=== PATIENT | female | born 1965 | race Native Hawaiian/Other Pacific Islander ===

== ENCOUNTER 2016-10-29 13:51 | Outpatient (CLI) | payer MEDICAID | END 2016-10-29 13:52 | disposition home or self-care (01) | DX: E78.5 Hyperlipidemia, unspecified (principal); I10 Essential (primary) hypertension; M25.50 Pain in unspecified joint ==

== ENCOUNTER 2016-11-20 13:12 | Outpatient (CLI) | payer MEDICAID | END 2016-11-20 13:13 | disposition home or self-care (01) | DX: Z12.31 Encounter for screening mammogram for malignant neoplasm of breast (principal) ==

== ENCOUNTER 2017-06-04 10:37 | Outpatient (CLI) | payer MEDICAID ==
[2017-06-04 11:30] LABS: ALBUMIN/GLOBULIN RATIO 1.2 (1.0-2.2); BILIRUBIN,TOTAL 0.5 mg/dL (0.2-1.0); BUN - BLOOD UREA NITROGEN 9 mg/dL (6-20); CALCIUM 9.2 mg/dL (8.5-10.3); CARBON DIOXIDE - CO2 24 mmol/L (21-32); CHLORIDE 103 mmol/L (101-111); CHOL/HDL RATIO 3.3 (<4.4); CHOLESTEROL 170 mg/dL; CREATININE 0.6 mg/dL (0.4-1.0); GFR - MDRD 105 (>89); GLUCOSE 95 mg/dL (70-100); HDL CHOLESTEROL 51 mg/dL; LDL/HDL RATIO 1.8 (<4.4); SODIUM 138 mmol/L (135-145); TRIGLYCERIDES 131 mg/dL; VLDL CHOLESTEROL 26 mg/dL
== END 2017-06-04 10:38 | disposition home or self-care (01) ==
LOC: LAB 10:37
PROVIDERS: ATTEND Family Medicine
DX: R73.9 Hyperglycemia, unspecified (principal); E78.5 Hyperlipidemia, unspecified; I10 Essential (primary) hypertension
CPT/HCPCS: 36415; 80053; 80061

== ENCOUNTER 2017-06-24 09:09 | Outpatient (CLI) | payer MEDICAID ==
--- NOTE | 2017-06-25 16:11 | CT Report ---
CT SCAN ABDOMEN AND PELVIS: 06/24/2017 HISTORY: Change in bowel habits, abdominal pain. COMPARISON: None. TECHNIQUE: Axial noncontrast images of the abdomen and pelvis with multiplanar reconstructions. In accordance with CT protocol optimization, one or more of the following dose reduction techniques were utilized for this exam: automated exposure control, adjustment of mA and/or KV based on patient size, or use of iterative reconstructive technique. FINDINGS LUNG BASES: Clear. LIVER, SPLEEN, ADRENAL GLANDS, AND PANCREAS: Unremarkable. Faint medullary calcifications are seen in both kidneys without evidence of hydronephrosis or cystic or solid mass. The gallbladder is distended with sludge. There is a 1.5 cm peripherally calcified lesion in the gallbladder neck/cystic duct region, worrisome for an obstructing stone. Suggest further evaluation by ultrasound. There is no free fluid, mass, abnormal collections, or pathologic upper abdominal adenopathy. No significant diverticulosis or diverticulitis. The bladder is unremarkable. Uterus and ovaries show no obvious pathology by CT. Again, no free fluid, adenopathy or abnormal collections. The appendix is not definitely seen. There is degenerative change in the spine most marked L3-4 and L4-5. IMPRESSION: ABNORMAL GALLBLADDER WITH DISTENTION, SLUDGE VERSUS SMALL STONES, AND 1.5 CM RIM-CALCIFIED LESION IN THE GALLBLADDER NECK/CYSTIC DUCT. SUGGEST FURTHER EVALUATION BY ABDOMEN ULTRASOUND. OTHER INCIDENTAL FINDINGS ABOVE. JOB #: [id number] EXT JOB #: [id number] MTDD
== END 2017-06-24 09:10 | disposition home or self-care (01) ==
LOC: DI 09:09
PROVIDERS: ATTEND Family Medicine
DX: K82.8 Other specified diseases of gallbladder (principal)
CPT/HCPCS: 74176

== ENCOUNTER 2017-07-12 08:31 | Outpatient (CLI) | payer MEDICAID ==
--- NOTE | 2017-07-12 23:44 | Ultrasound Report ---
EXAM: ABDOMEN ULTRASOUND LIMITED, RUQ EXAM DATE: 07/12/2017 09:46 AM. CLINICAL HISTORY: CHOLELITHIASIS. COMPARISON: 06/24/2017 CT. TECHNIQUE: Real-time scanning was performed with static images obtained. FINDINGS: Liver: Hyperechoic echotexture. No focal liver lesions. 14.3 cm. Main portal vein flow: Hepatopetal. Gallbladder: Mildly distended gallbladder containing several shadowing stones. There is a non-mobile 1 cm stone within the neck of the gallbladder. No gallbladder wall thickening or pericholecystic flui d collections. Biliary System: CBD measures 4 mm. No intrahepatic or extrahepatic ductal dilatation. Other: No right hydronephrosis. The patient's pancreas is unremarkable. IMPRESSION: 1. Cholelithiasis including a non-mobile 1 cm stone within the neck of the gallbladder. No evidence o f acute cholecystitis or bile duct obstruction. 2. Fatty liver. [facility] Referring Provider Line: [phone] SITE ID: [id number]
== END 2017-07-12 08:32 | disposition home or self-care (01) ==
LOC: DI 08:31
PROVIDERS: ATTEND Family Medicine
DX: K80.20 Calculus of gallbladder without cholecystitis without obstruction (principal); K76.0 Fatty (change of) liver, not elsewhere classified
CPT/HCPCS: 76705

== ENCOUNTER 2018-06-22 08:00 | Outpatient (CLI) | payer MEDICAID | END 2018-06-22 08:01 | disposition home or self-care (01) | LOC: LAB.R 08:00 | PROVIDERS: ATTEND Nurse Practitioner | DX: R10.9 Unspecified abdominal pain (principal) | CPT/HCPCS: 87086 ==

== ENCOUNTER 2018-06-22 11:55 | Outpatient (CLI) | payer MEDICAID ==
[2018-06-22 19:28] LABS: BASOPHILS % (AUTO) 0.5 %; EOSINOPHILS # (AUTO) 0.1 10^3/uL (0.0-0.7); EOSINOPHILS % (AUTO) 1.9 %; HGB - HEMOGLOBIN 14.5 g/dL (12.0-16.0); LYMPHOCYTES # (AUTO) 1.2 10^3/uL (1.5-3.5); LYMPHOCYTES % (AUTO) 23.3 %; MEAN CORPUSCULAR HEMOGLOBIN 28.4 pg (27.0-31.0); MEAN CORPUSCULAR HGB CONC 33.1 g/dL (32.0-36.0); MEAN CORPUSCULAR VOLUME 85.8 fL (81.0-99.0); MEAN PLATELET VOLUME 7.8 fL (7.9-10.8); MONOCYTES # (AUTO) 0.6 10^3/uL (0.0-1.0); MONOCYTES % (AUTO) 11.6 %; NEUTROPHILS # (AUTO) 3.3 10^3/uL (1.5-6.6); NEUTROPHILS % (AUTO) 62.7 %; PLT - PLATELET COUNT 275 10^3/uL (130-450); RED BLOOD COUNT 5.11 10^6/uL (4.20-5.40); RED CELL DISTRIBUTION WIDTH 13.3 % (12.0-15.0); WHITE BLOOD COUNT 5.3 x10^3/uL (4.8-10.8)
[2018-06-22 19:54] LABS: ALBUMIN/GLOBULIN RATIO 1.1 (1.0-2.2); ALKALINE PHOSPHATASE 70 IU/L (42-121); ALT ALANINE AMINOTRANSFERASE 22 IU/L (10-60); AST ASPARTATE AMINOTRANSFERASE 20 IU/L (10-42); BILIRUBIN,TOTAL 0.5 mg/dL (0.2-1.0); BUN - BLOOD UREA NITROGEN 15 mg/dL (6-20); CALCIUM 9.2 mg/dL (8.5-10.3); CARBON DIOXIDE - CO2 24 mmol/L (21-32); CHLORIDE 104 mmol/L (101-111); CHOL/HDL RATIO 4.1 (<4.4); CHOLESTEROL 246 mg/dL; CREATININE 0.6 mg/dL (0.4-1.0); GFR - MDRD 104 (>89); GLUCOSE 95 mg/dL (70-100); HDL CHOLESTEROL 60 mg/dL; LDL CHOLESTEROL,CALCULATED 159 mg/dL; LDL/HDL RATIO 2.7 (<4.4); SODIUM 140 mmol/L (135-145); TOTAL PROTEIN 7.8 g/dL (6.7-8.2); VLDL CHOLESTEROL 27 mg/dL
== END 2018-06-22 11:56 | disposition home or self-care (01) ==
LOC: LAB.N 11:55
PROVIDERS: ATTEND Nurse Practitioner
DX: I10 Essential (primary) hypertension (principal); E78.5 Hyperlipidemia, unspecified; R10.9 Unspecified abdominal pain
CPT/HCPCS: 36415; 80053; 80061; 83721; 85025; 87086

== ENCOUNTER 2018-07-03 14:22 | Outpatient (CLI) | payer MEDICAID ==
--- NOTE | 2018-07-03 16:24 | XRAY Report ---
Reason: ABDOMEN PAIN Procedure Date: 07/03/2018 Accession Number: [id number] / [id number] Procedure: XRN - Abdomen 2 View X-Ray CPT Code: 95188 FULL RESULT: EXAM: ABDOMEN RADIOGRAPHY EXAM DATE: 07/03/2018 02:36 PM. CLINICAL HISTORY: Abdomen pain. COMPARISON: None. TECHNIQUE: 2 views. FINDINGS: Lung Bases: Unremarkable. Bowel Gas Pattern: Within normal limits. No dilated loops or abnormal fluid levels. Free Air: None. Other: None. IMPRESSION: Nonobstructive bowel gas pattern. [facility]
== END 2018-07-03 14:23 | disposition home or self-care (01) ==
LOC: DI.N 14:22
PROVIDERS: ATTEND Nurse Practitioner
DX: R10.9 Unspecified abdominal pain (principal)
CPT/HCPCS: 74019

== ENCOUNTER 2018-07-07 14:36 | Outpatient (CLI) | payer MEDICAID ==
--- NOTE | 2018-07-08 11:04 | XRAY Report ---
Reason: WRIST JOINT PAIN/HAND JOINT PAIN,RIGHT Procedure Date: 07/07/2018 Accession Number: [id number] / [id number] Procedure: XRN - Hand 2 View RT CPT Code: FULL RESULT: EXAM: RIGHT HAND RADIOGRAPHY EXAM DATE: 07/07/2018 02:54 PM. CLINICAL HISTORY: Wrist joint pain/hand joint pain, right. COMPARISON: None. TECHNIQUE: 2 views. FINDINGS: Bones: Normal. No fractures or bone lesions. Joints: Normal. No subluxations. Soft Tissues: Normal. No soft tissue swelling. IMPRESSION: Normal hand radiography. [facility]
--- NOTE | 2018-07-08 11:06 | XRAY Report ---
Reason: wrist joint pain Procedure Date: 07/07/2018 Accession Number: [id number] / [id number] Procedure: XRN - Wrist 3 View RT CPT Code: FULL RESULT: EXAM: RIGHT WRIST RADIOGRAPHY EXAM DATE: 07/07/2018 02:54 PM. CLINICAL HISTORY: Wrist joint pain. COMPARISON: HAND 2 VIEW RT 07/07/2018 2:53 PM. TECHNIQUE: 3 views. FINDINGS: Bones: Normal. No fractures or bone lesions. Joints: Normal. No subluxations. Soft Tissues: Normal. No soft tissue swelling. IMPRESSION: Normal wrist radiography. [facility]
== END 2018-07-07 14:37 | disposition home or self-care (01) ==
LOC: DI.N 14:36
PROVIDERS: ATTEND Nurse Practitioner
DX: M25.531 Pain in right wrist (principal); M79.641 Pain in right hand

== ENCOUNTER 2018-10-13 15:54 | Outpatient (CLI) | payer MEDICAID ==
--- NOTE | 2018-10-13 23:18 | XRAY Report ---
Reason: FOOT JOINT PAIN,RIGHT Procedure Date: 10/13/2018 Accession Number: [id number] / [id number] Procedure: XRN - Foot 3 View RT CPT Code: FULL RESULT: EXAM: RIGHT FOOT RADIOGRAPHY EXAM DATE: 10/13/2018 04:06 PM. CLINICAL HISTORY: FOOT JOINT Pain, right. COMPARISON: 06/08/2015 12:09 PM. TECHNIQUE: 3 views. FINDINGS: Bones: Normal. No fractures or bone lesions. Joints: Normal. No subluxations. Soft Tissues: Normal. No soft tissue swelling. IMPRESSION: Negative foot radiography. [facility]
== END 2018-10-13 15:55 | disposition home or self-care (01) ==
LOC: DI.N 15:54
PROVIDERS: ATTEND Nurse Practitioner
DX: M79.671 Pain in right foot (principal)

== ENCOUNTER 2019-07-19 09:00 | Outpatient (CLI) | payer MEDICAID ==
[2019-07-19 13:08] LABS: BASOPHILS % (AUTO) 0.4 %; EOSINOPHILS # (AUTO) 0.1 10^3/uL (0.0-0.7); HGB - HEMOGLOBIN 14.4 g/dL (12.0-16.0); LYMPHOCYTES # (AUTO) 1.6 10^3/uL (1.5-3.5); MEAN CORPUSCULAR HEMOGLOBIN 27.7 pg (27.0-31.0); MEAN CORPUSCULAR HGB CONC 32.4 g/dL (32.0-36.0); MEAN CORPUSCULAR VOLUME 85.6 fL (81.0-99.0); MEAN PLATELET VOLUME 9.9 fL (7.9-10.8); MONOCYTES # (AUTO) 0.4 10^3/uL (0.0-1.0); MONOCYTES % (AUTO) 7.4 %; NEUTROPHILS # (AUTO) 2.8 10^3/uL (1.5-6.6); PLT - PLATELET COUNT 280 10^3/uL (130-450); RED CELL DISTRIBUTION WIDTH 13.4 % (12.0-15.0); WHITE BLOOD COUNT 4.9 x10^3/uL (4.8-10.8)
[2019-07-19 13:31] LABS: ALBUMIN 4.2 g/dL (3.2-5.5); ALBUMIN/GLOBULIN RATIO 1.2 (1.0-2.2); ALKALINE PHOSPHATASE 62 IU/L (42-121); ALT ALANINE AMINOTRANSFERASE 27 IU/L (10-60); AST ASPARTATE AMINOTRANSFERASE 21 IU/L (10-42); BILIRUBIN,TOTAL 0.9 mg/dL (0.2-1.0); BUN - BLOOD UREA NITROGEN 12 mg/dL (6-20); CALCIUM 9.4 mg/dL (8.5-10.3); CARBON DIOXIDE - CO2 27 mmol/L (21-32); CHLORIDE 106 mmol/L (101-111); CHOL/HDL RATIO 4.5 (<4.4); CHOLESTEROL 253 mg/dL; CREATININE 0.7 mg/dL (0.4-1.0); GFR - MDRD 87 (>89); GLUCOSE 108 mg/dL (70-100); HDL CHOLESTEROL 56 mg/dL; LDL CHOLESTEROL,CALCULATED 174 mg/dL; LDL/HDL RATIO 3.1 (<4.4); SODIUM 140 mmol/L (135-145); TOTAL PROTEIN 7.6 g/dL (6.7-8.2); VLDL CHOLESTEROL 23 mg/dL
== END 2019-07-19 23:59 | disposition home or self-care (01) ==
LOC: LAB.N 09:00
PROVIDERS: ATTEND Physician Assistant Medical
DX: E66.9 Obesity, unspecified (principal); R73.9 Hyperglycemia, unspecified; E78.5 Hyperlipidemia, unspecified; I10 Essential (primary) hypertension
CPT/HCPCS: 36415; 80053; 80061; 83721; 84443; 85025

== ENCOUNTER 2019-07-19 09:38 | Outpatient (CLI) | payer MEDICAID ==
--- NOTE | 2019-07-19 11:16 | XRAY Report ---
Reason: LEFT FOOT PAIN Procedure Date: 07/19/2019 Accession Number: [id number] / [id number] Procedure: XRN - Foot 3 View LT CPT Code: Final Report FULL RESULT: EXAM: LEFT FOOT RADIOGRAPHY EXAM DATE: 07/19/2019 09:54 AM. CLINICAL HISTORY: Left foot pain. COMPARISON: None. TECHNIQUE: 3 views. FINDINGS: Bones: There is fragmentation of the sesamoid bones which appears well rounded and corticated, not acute. No fractures or bone lesions. Joints: Normal. No subluxations. Soft Tissues: Normal. No soft tissue swelling. IMPRESSION: Recommend correlation to physical examination for focal tenderness at the ball of the foot. [facility]
== END 2019-07-19 09:39 | disposition home or self-care (01) ==
LOC: DI.N 09:38
PROVIDERS: ATTEND Physician Assistant Medical
DX: M79.672 Pain in left foot (principal); E66.9 Obesity, unspecified; R73.9 Hyperglycemia, unspecified; E78.5 Hyperlipidemia, unspecified; I10 Essential (primary) hypertension
CPT/HCPCS: 36415; 80053; 80061; 83721; 84443; 85025

== ENCOUNTER 2020-10-16 08:00 | Outpatient (CLI) | payer MEDICAID ==
[2020-10-16 18:39] LABS: BASOPHILS % (AUTO) 0.5 %; EOSINOPHILS # (AUTO) 0.1 10^3/uL (0.0-0.7); EOSINOPHILS % (AUTO) 2.2 %; HCT - HEMATOCRIT 46.6 % (37.0-47.0); HGB - HEMOGLOBIN 15.4 g/dL (12.0-16.0); LYMPHOCYTES # (AUTO) 2.1 10^3/uL (1.5-3.5); LYMPHOCYTES % (AUTO) 33.5 %; MEAN CORPUSCULAR HEMOGLOBIN 28.6 pg (27.0-31.0); MEAN CORPUSCULAR VOLUME 86.6 fL (81.0-99.0); MEAN PLATELET VOLUME 10.3 fL (7.9-10.8); MONOCYTES # (AUTO) 0.5 10^3/uL (0.0-1.0); MONOCYTES % (AUTO) 8.1 %; NEUTROPHILS # (AUTO) 3.5 10^3/uL (1.5-6.6); NEUTROPHILS % (AUTO) 55.4 %; PLT - PLATELET COUNT 292 10^3/uL (130-450); RED BLOOD COUNT 5.38 10^6/uL (4.20-5.40); RED CELL DISTRIBUTION WIDTH 12.9 % (12.0-15.0); WHITE BLOOD COUNT 6.3 x10^3/uL (4.8-10.8)
[2020-10-16 19:23] LABS: THYROID STIMULATING HORMONE 1.55 uIU/mL (0.34-5.60)
[2020-10-16 19:31] LABS: ALBUMIN 4.4 g/dL (3.2-5.5); ALBUMIN/GLOBULIN RATIO 1.2 (1.0-2.2); ALKALINE PHOSPHATASE 64 IU/L (42-121); ALT ALANINE AMINOTRANSFERASE 30 IU/L (10-60); AST ASPARTATE AMINOTRANSFERASE 20 IU/L (10-42); BILIRUBIN,TOTAL 1.1 mg/dL (0.2-1.0); BUN - BLOOD UREA NITROGEN 13 mg/dL (6-20); CALCIUM 9.7 mg/dL (8.5-10.3); CARBON DIOXIDE - CO2 25 mmol/L (21-32); CHLORIDE 104 mmol/L (101-111); CHOL/HDL RATIO 4.8 (<4.4); CHOLESTEROL 268 mg/dL; GLUCOSE 99 mg/dL (70-100); HDL CHOLESTEROL 56 mg/dL; LDL CHOLESTEROL,CALCULATED 188 mg/dL; LDL/HDL RATIO 3.4 (<4.4); POTASSIUM 3.8 mmol/L (3.5-5.0); SODIUM 140 mmol/L (135-145); TOTAL PROTEIN 8.2 g/dL (6.7-8.2); TRIGLYCERIDES 119 mg/dL; VLDL CHOLESTEROL 24 mg/dL
[2020-10-16 19:46] LABS: ESTIMATED AVERAGE GLUCOSE 120 mg/dL (70-100); HEMOGLOBIN A1c% 5.8 % (4.27-6.07)
[2020-10-16 19:55] LABS: CREATININE 0.7 mg/dL (0.4-1.0); GFR - MDRD 87 (>89)
== END 2020-10-16 23:59 | disposition home or self-care (01) ==
LOC: LAB.WCP 08:00
PROVIDERS: ATTEND Nurse Practitioner Family
DX: Z00.00 Encounter for general adult medical examination without abnormal findings (principal); I10 Essential (primary) hypertension; E78.5 Hyperlipidemia, unspecified; R73.9 Hyperglycemia, unspecified
CPT/HCPCS: 36415; 80053; 80061; 83036; 83721; 84443; 85025

== ENCOUNTER 2020-12-13 08:15 | Outpatient (CLI) | payer MEDICAID ==
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
[2020-12-13 09:04] VITALS: BP 124/75
== END 2020-12-13 08:16 | disposition home or self-care (01) ==
LOC: SC 08:15
PROVIDERS: ATTEND Nurse Practitioner Family
DX: G47.10 Hypersomnia, unspecified (principal); R06.83 Snoring; G47.8 Other sleep disorders; R51.9 Headache, unspecified; R41.89 Other symptoms and signs involving cognitive functions and awareness; E66.9 Obesity, unspecified; Z68.35 Body mass index [BMI] 35.0-35.9, adult; Z87.891 Personal history of nicotine dependence
CPT/HCPCS: 99203; 99212

== ENCOUNTER 2020-12-15 18:05 | Outpatient (CLI) | payer MEDICAID | END 2020-12-15 18:06 | disposition home or self-care (01) | LOC: SC 18:05 | PROVIDERS: ATTEND Nurse Practitioner Family | DX: G47.33 Obstructive sleep apnea (adult) (pediatric) (principal); E66.9 Obesity, unspecified; Z68.35 Body mass index [BMI] 35.0-35.9, adult | CPT/HCPCS: 95806 ==

== ENCOUNTER 2020-12-18 21:18 | Emergency (ER) | payer MEDICAID ==
--- NOTE | 2020-12-18 21:32 | ED Physician Documentation ---
PD HPI DYSPNEA - Stated complaint Stated Complaint: CP,SOA - Chief complaint Chief Complaint: Cardiac - History obtained from History obtained from: Patient - History of Present Illness Timing - onset: How many months ago (1-2) Timing - duration: Months (1-2 months of exertional dyspnea, feeling now short of breath with mild activity. No orthopnea. Feeling wheezy. No persistent cough nor sputum. No chest pain. Does feel general weakness and at times lightheaded.) Timing - details: Gradual onset, Still present Inciting event(s): Exercise Improved by: Rest. No: Sitting up Worsened by: Coughing. No: Laying flat Associated symptoms: Cough, Wheezing. No: Fever, Chest pain / discomfort, Palpitations, Bilateral edema Similar symptoms before: Diagnosis (had simile in 2013 due to severe anemia. No history of CAD nor lung disease.) Recently seen: Clinic (had seen PCP recently and had sleep study with results pending. She told tech at sleep study about her symptoms and was advised to get follow up more promptly.) Review of Systems Constitutional: denies: Fever, Chills Nose: denies: Rhinorrhea / runny nose, Congestion Throat: denies: Sore throat Cardiac: denies: Chest pain / pressure, Palpitations, Pedal edema Respiratory: reports: Dyspnea, Cough, Wheezing GI: reports: Abdominal Pain (episodic upper abd pain after eating. Known prior gallstones.). denies: Nausea, Vomiting, Diarrhea, Bloody / black stool Neurologic: reports: Generalized weakness. denies: Focal weakness, Numbness PD PAST MEDICAL HISTORY - Past Medical History Cardiovascular: Hypertension - Past Surgical History Past Surgical History: No - Present Medications Home Medications: Ambulatory Orders Medication Instructions Recorded Confirmed Albuterol Sulf [Ventolin Hfa 2 - 3 puffs INH Q4HR PRN #1 inhaler 12/19/20 Inhaler] dexAMETHasone [Decadron] 4 mg PO DAILY #5 tablet 12/19/20 - Allergies Allergies/Adverse Reactions: Allergies Allergy/AdvReac Type Severity Reaction Status Date / Time No Known Drug Allergies Allergy Verified 01/07/14 09:34 - Social History Does the pt smoke?: No Smoking Status: Former smoker Does the pt drink ETOH?: Yes Does the pt have substance abuse?: No PD ED PE NORMAL - Vitals Vital signs reviewed: Yes - General General: Alert and oriented X 3, No acute distress, Well developed/nourished - Neck Neck: Supple, no meningeal sign, No adenopathy - Cardiac Cardiac: RRR, No murmur, No rub - Respiratory Respiratory: No respiratory distress, Clear bilaterally - Abdomen Abdomen: Soft, Non tender - Back Back: No CVA TTP - Derm Derm: Normal color, Warm and dry - Extremities Extremities: No edema, No calf tenderness / cord - Neuro Neuro: Alert and oriented X 3, No motor deficit, Normal speech Results - Vitals Vitals: Vital Signs - 24 hr 12/18/20 12/18/20 12/18/20 21:20 21:58 22:28 Temperature 36.6 C Heart Rate 62 62 53 L Respiratory 18 12 12 Rate Blood Pressure 196/96 H 181/94 H 185/82 H O2 Saturation 98 98 98 12/18/20 12/18/20 12/18/20 22:30 23:00 23:20 Temperature Heart Rate 54 L 57 L 62 Respiratory 12 16 16 Rate Blood Pressure 185/82 H 180/88 H O2 Saturation 98 98 12/18/20 12/19/20 12/19/20 23:30 00:00 01:42 Temperature 36.8 C Heart Rate 62 62 61 Respiratory 15 11 L 14 Rate Blood Pressure 161/86 H 175/84 H 120/69 O2 Saturation 100 97 100 Oxygen O2 Source Room air - EKG (time done) 21;20 Rate: Rate (enter#) Rhythm: NSR [place]: Normal Intervals: Normal CA QRS: Normal Ischemia: Normal ST segments. No: ST elevation c/w ischemia, ST depression - Labs Labs: Laboratory Tests 12/18/20 12/18/20 12/18/20 21:48 21:48 21:48 WBC 7.5 RBC 5.25 Hgb 14.9 Hct 44.3 MCV 84.4 MCH 28.4 MCHC 33.6 RDW 12.8 Plt Count 282 MPV 9.0 Neut # (Auto) 4.2 Lymph # (Auto) 2.5 [place] # (Auto) 0.5 Eos # (Auto) 0.2 Baso # (Auto) 0.1 Absolute Nucleated RBC 0.00 Nucleated RBC % 0.0 Sodium 140 Potassium 3.6 Chloride 104 Carbon Dioxide 24 Anion Gap 12.0 BUN 18 Creatinine 0.7 Estimated GFR (MDRD) 87 L Glucose 103 H Calcium 10.1 Magnesium Total Bilirubin 0.8 AST 21 ALT 29 Alkaline Phosphatase 65 Troponin I High Sens 4.3 B-Natriuretic Peptide Total Protein 8.2 Albumin 4.4 Globulin 3.8 Albumin/Globulin Ratio 1.2 Lipase 29 TSH Urine Opiates Screen Ur Oxycodone Screen Urine Methadone Screen Ur Propoxyphene Screen Ur Barbiturates Screen Ur Tricyclics Screen Ur Phencyclidine Scrn Ur Amphetamine Screen U Methamphetamines Scrn U Benzodiazepines Scrn Urine Cocaine Screen U Cannabinoids Screen Ethyl Alcohol 12/18/20 12/18/20 12/18/20 21:48 21:48 21:48 WBC RBC Hgb Hct MCV MCH MCHC RDW Plt Count MPV Neut # (Auto) Lymph # (Auto) [place] # (Auto) Eos # (Auto) Baso # (Auto) Absolute Nucleated RBC Nucleated RBC % Sodium Potassium Chloride Carbon Dioxide Anion Gap BUN Creatinine Estimated GFR (MDRD) Glucose Calcium Magnesium 2.1 Total Bilirubin AST ALT Alkaline Phosphatase Troponin I High Sens B-Natriuretic Peptide 17 Total Protein Albumin Globulin Albumin/Globulin Ratio Lipase TSH 2.72 Urine Opiates Screen Ur Oxycodone Screen Urine Methadone Screen Ur Propoxyphene Screen Ur Barbiturates Screen Ur Tricyclics Screen Ur Phencyclidine Scrn Ur Amphetamine Screen U Methamphetamines Scrn U Benzodiazepines Scrn Urine Cocaine Screen U Cannabinoids Screen Ethyl Alcohol 12/18/20 12/18/20 21:48 22:55 WBC RBC Hgb Hct MCV MCH MCHC RDW Plt Count MPV Neut # (Auto) Lymph # (Auto) [place] # (Auto) Eos # (Auto) Baso # (Auto) Absolute Nucleated RBC Nucleated RBC % Sodium Potassium Chloride Carbon Dioxide Anion Gap BUN Creatinine Estimated GFR (MDRD) Glucose Calcium Magnesium Total Bilirubin AST ALT Alkaline Phosphatase Troponin I High Sens B-Natriuretic Peptide Total Protein Albumin Globulin Albumin/Globulin Ratio Lipase TSH Urine Opiates Screen NEGATIVE Ur Oxycodone Screen NEGATIVE Urine Methadone Screen NEGATIVE Ur Propoxyphene Screen NEGATIVE Ur Barbiturates Screen NEGATIVE Ur Tricyclics Screen NEGATIVE Ur Phencyclidine Scrn NEGATIVE Ur Amphetamine Screen NEGATIVE U Methamphetamines Scrn NEGATIVE U Benzodiazepines Scrn NEGATIVE Urine Cocaine Screen NEGATIVE U Cannabinoids Screen NEGATIVE Ethyl Alcohol < 5.0 - Rads (name of study) chest xray Radiology: Prelim report reviewed (clear), See rad report RUQ U/S Radiology: Prelim report reviewed (gallstones without signs of cholecystitis), See rad report PD MEDICAL DECISION MAKING - ED course Complexity details: reviewed results, re-evaluated patient (feels improved with neb treatment. ), considered differential (consider CHF/heart versus anemia, thyroid, or lung related. ), d/w patient Departure - Departure Disposition: 01 Home, Self Care Clinical Impression: Chest discomfort, Gallstones Dyspnea Qualifiers: Dyspnea type: dyspnea on exertion Qualified Code(s): R06.00 - Dyspnea, unspecified Condition: Stable Record reviewed to determine appropriate education?: Yes Instructions: ED Dyspnea Shortness of Breath Follow-Up: ANGEL RUIZ, MSN, EQUIPMENT SPECIALIST [Primary Care Provider] - Colin Castillo MD [Provider Admit Priv/Credential] - Fam Maldonado MD [Provider Admit Priv/Credential] - Prescriptions: Albuterol Sulf [Ventolin Hfa Inhaler] 2 - 3 puffs INH Q4HR PRN #1 inhaler PRN Reason: Shortness Of Air/Wheezing dexAMETHasone [Decadron] 4 mg PO DAILY #5 tablet Comments: No signs of heart attack or heart failure, anemia, fluid in the lungs or around the lungs, sugar or thyroid disorder. At this point your symptoms sound likely to be some inflammation of the airways (reactive airway disease/asthma). I would suggest use the albuterol inhaler 2 to 3 puffs 4 times a day regularly for the next week or so and then as needed. Also Decadron steroid for inflammation of the airways daily for the next 5 days. Follow-up with your primary care for further evaluation and treatment. Consideration could be for an exercise stress test to fully ensure no signs of heart disease. Your ultrasound shows gallstones in the gallbladder but no signs of acute inflammation or swelling. Follow-up with one of the surgeons to discuss potential gallbladder removal, call for an appointment. I listed 2 of the surgery clinics to choose for follow-up. Discharge Date/Time: 12/19/20 01:42
[2020-12-18 21:54] LABS: BASOPHILS # (AUTO) 0.1 10^3/uL (0.0-0.1); BASOPHILS % (AUTO) 0.7 %; EOSINOPHILS # (AUTO) 0.2 10^3/uL (0.0-0.7); EOSINOPHILS % (AUTO) 2.5 %; HCT - HEMATOCRIT 44.3 % (37.0-47.0); HGB - HEMOGLOBIN 14.9 g/dL (12.0-16.0); LYMPHOCYTES # (AUTO) 2.5 10^3/uL (1.5-3.5); LYMPHOCYTES % (AUTO) 33.6 %; MEAN CORPUSCULAR HEMOGLOBIN 28.4 pg (27.0-31.0); MEAN CORPUSCULAR HGB CONC 33.6 g/dL (32.0-36.0); MEAN CORPUSCULAR VOLUME 84.4 fL (81.0-99.0); MONOCYTES # (AUTO) 0.5 10^3/uL (0.0-1.0); MONOCYTES % (AUTO) 6.4 %; NEUTROPHILS # (AUTO) 4.2 10^3/uL (1.5-6.6); NEUTROPHILS % (AUTO) 56.5 %; PLT - PLATELET COUNT 282 10^3/uL (130-450); RED BLOOD COUNT 5.25 10^6/uL (4.20-5.40); RED CELL DISTRIBUTION WIDTH 12.8 % (12.0-15.0); WHITE BLOOD COUNT 7.5 x10^3/uL (4.8-10.8)
[2020-12-18 22:09] LABS: ALBUMIN 4.4 g/dL (3.2-5.5); ALBUMIN/GLOBULIN RATIO 1.2 (1.0-2.2); BILIRUBIN,TOTAL 0.8 mg/dL (0.2-1.0); CALCIUM 10.1 mg/dL (8.5-10.3); CREATININE 0.7 mg/dL (0.4-1.0); POTASSIUM 3.6 mmol/L (3.5-5.0); TOTAL PROTEIN 8.2 g/dL (6.7-8.2)
[2020-12-18] MEDS ORDERED: ALBUTEROL NEB 2.5 MG/3 ML INH STA (22:50)
[2020-12-18 23:25] LABS: MUDS CUTOFF CONCENTRATIONS CUTOFF CONC BELOW:
[2020-12-18 23:38] LABS: AMPHETAMINE SCREEN,URINE NEGATIVE (NEGATIVE); BARBITURATE SCREEN,UR NEGATIVE (NEGATIVE); BENZODIAZEPINES SCREEN, URINE NEGATIVE (NEGATIVE); COCAINE SCREEN URINE NEGATIVE (NEGATIVE); METHADONE SCREEN, URINE NEGATIVE (NEGATIVE); METHAMPHETAMINES SCREEN, URINE NEGATIVE (NEGATIVE); OPIATE SCREEN, URINE NEGATIVE (NEGATIVE); OXYCODONE SCREEN, URINE NEGATIVE (NEGATIVE); PROPOXYPHENE SCREEN, URINE NEGATIVE (NEGATIVE); THC CANNABINOID SCREEN, URINE NEGATIVE (NEGATIVE); TRICYCLIC ANTIDEPRESSANT,URINE NEGATIVE (NEGATIVE)
[2020-12-19] MEDS ORDERED: DEXAMETHASONE 10 MG/ML VIAL IVP STA (01:06)
[2020-12-19 01:42] VITALS: BP 120/69
--- NOTE | 2020-12-19 08:18 | XRAY Report ---
PROCEDURE: Chest 1 View X-Ray INDICATIONS: Chest pain TECHNIQUE: One view of the chest was acquired. COMPARISON: 07/19/2019 FINDINGS: Surgical changes and devices: None. Lungs and pleura: No pleural effusions or pneumothorax. There is an ill-defined airspace opacity in the left midlung measuring approximately 1.7 cm. The lungs are otherwise clear. There Mediastinum: M ediastinal contours appear normal. Heart size is normal. Bones and chest wall: No suspicious bony lesions. Overlying soft tissues appear unremarkable. IMPRESSION: New approximately 1.7 cm ill-defined airspace opacity in the left midlung. This could represent infec tion, although a neoplasm would appear similar. If the patient has symptoms of infection or pneumonia , then radiographic follow-up to document complete resolution would be recommended after completion o f appropriate therapy. In the absence of the symptoms, a nonemergent CT of the chest with IV contrast would be recommended to exclude neoplasm. Reviewed by: Abdelrahman Martinez MD on 12/19/2020 8:16 AM PDT Approved by: Abdelrahman Martinez MD on 12/19/2020 8:16 AM PDT Station ID: [id number]
--- NOTE | 2020-12-19 08:32 | Ultrasound Report ---
PROCEDURE: Abdomen Limited INDICATIONS: some upper abd pain; h/o gallstones TECHNIQUE: Real-time focused scanning was performed of the abdomen, with image documentation. COMPARISON: Ultrasound dated 07/12/2017 FINDINGS: Diffusely echogenic liver parenchyma is seen suggestive of hepatic steatosis. No discrete hepatic les ion is seen. Gallbladder is distended. Gallstones and sludge material is seen. No gallbladder wall thickening or p ericholecystic fluid. No sonographic Cain's sign. There is no intrahepatic biliary ductal dilatation. Common bile that measures up to 5 mm in diameter and is within normal limits. Visualized portion of pancreas shows no gross abnormality. Right kidney measures 9.7 cm in length. There is no hydronephrosis or solid-appearing renal lesion. IMPRESSION: 1. Distended gallbladder with cholelithiasis. No sonographic evidence of acute cholecystitis. 2. Hepatic steatosis. No discrete hepatic lesion. 3. No biliary ductal dilatation. Reviewed by: Audi Casas MD on 12/19/2020 8:30 AM PDT Approved by: Audi Casas MD on 12/19/2020 8:30 AM PDT Station ID: [id number]
== END 2020-12-19 01:42 | disposition home or self-care (01) ==
LOC: ED 21:18
DX: R07.89 Other chest pain (principal); R06.09 Other forms of dyspnea; K80.20 Calculus of gallbladder without cholecystitis without obstruction; K76.0 Fatty (change of) liver, not elsewhere classified; I10 Essential (primary) hypertension; Z87.891 Personal history of nicotine dependence
CPT/HCPCS: 36415; 80053; 80306; 80320; 83690; 83735; 83880; 84443; 84484; 85025; 93005; 94640; 99283; 99284

== ENCOUNTER 2020-12-21 10:56 | Outpatient (CLI) | payer MEDICAID ==
--- NOTE | 2020-12-21 11:18 | SLEEP CARE CONSULTATION ---
Information from patient questionnaire entered by Nancy Peraza. I have reviewed and concur with the information entered by Nancy Peraza. This document represents the service I personally performed and the decisions made by , Arin Domínguez ARNP. History of Present Illness Service Date and Time: 12/21/2020 1056 Initial [place] Sleepiness Scale score: 5 (in 2020) Current [place] Sleepiness Scale score: 7 Additional HPI information: JENNIFFER GORDON returns via Telehealth visit for follow up and results of the recently performed home sleep study. I explained the pathophysiology behind obstructive sleep apnea. We then spent quite a bit of time discussing different treatment options. For mild obstructive sleep apnea, surgery and oral appliance are alternatives to nasal CPAP therapy but in moderate or severe cases, nasal CPAP is the most effective and reliable treatment. I reviewed the impact of weight changes on sleep apnea and strongly recommended losing weight. After some discussion, the patient opted to go with the nasal CPAP therapy. Nasal autoCPAP set at 4-15 cmH20 will be ordered with rationale explained. A manual titration study will be ordered if unable to find optimal pressure with office adjustments. I explained how CPAP machine works and what to expect when using the machine. Using CPAP every night in order to get used to it was emphasized. Patient advised to put CPAP mask on before getting into bed so as not to fall asleep without CPAP. To assist acclimation to CPAP use, it could also be used for a short time during day while reading or watching TV. The patient was instructed to call the CPAP supplier to discuss any mechanical problem that may occur. If the mask given is uncomfortable or is difficult to keep on through the night even with adjustment, contact the CPAP supplier as many will replace with another mask style if notified before 30 days. If snoring or perceives is not getting enough air or too much air from the machine, notify this office. Patient counseled not drink alcohol less than 4 hours before bedtime as it can increase snoring and apnea. Patient was cautioned about risks of drowsy driving until sleepiness symptoms resolve. Sleep Study - Results Type of Sleep Study: Home sleep study Prior sleep studies: No Polysomnography/Home Sleep Study results: Physician Impression: The quality of the study is good. The length of the study is adequate (> 240 minutes). Please also see the tabulated and graphic data. 1. Obstructive Sleep Apnea-Hypopnea (ICD-10 G47.33), moderate, with an AHI of 23.8/hr and neeraj SaO2 of 80%. During the study, the patient had 163 apneas (163 obstructive, 0 central, 0 mixed) and 110 hypopneas. The longest episode lasted 84.5 seconds. The respiratory events occurred independently of sleep stage and body position (supine AHI was 22.1 and non- supine, 28.98). 2. Hypoxemia (ICD-10 R09.02), mild, with the lowest oxygen saturation of 80 % and 17.1 minutes with SaO2 under 90%. Baseline oxygen saturation was normal (Average oxygen saturation was 95%). Allergies and Home Medications Home medication list reviewed: Yes (inhaler and other med) Review of Systems Review of systems same as previous: No (ER visit for difficulty breathing, had low heart rate) Physical Exam Height: 5 ft 3 in Impression and Plan 1. Obstructive Sleep Apnea-Hypopnea Syndrome, moderate, with lowest oxygen saturation of 80%. Obviously this is the cause of the patients symptoms of unrefreshed sleep, and excessive daytime sleepiness. Positive pressure therapy could benefit hypertension and cerebrovascular disease (stroke). As mentioned above, the patient will be started on nasal autoCPAP therapy with pressure set at 4-15 cmH2O. A manual titration study will be completed if unable to find optimal treatment pressure with office adjustments. Compliance guidelines also reviewed. A copy of compliance guidelines will be given for reference at check out. * Nasal auto CPAP therapy, pressure at 4-15 cm H2O. * Attempt to lose weight. * Avoid alcohol consumption near bedtime. * The patient is again cautioned about driving until sleepiness completely resolves. * Return one month after CPAP obtained. I will assess response to therapy and compliance at that time. Counseling Topics: Weight loss health impact Visit Type: Telehealth Video Video Type: VSee Patient Location: Home Location of Provider: Office Patient agrees and consents to this telehealth visit type: Yes Patient agrees to have their insurance billed: Yes Time Spent with Patient (minutes): 21 Provider Statement: I spent 100% of the Telehealth Video Call with the patient with greater than 50% spent counseling the patient and coordination of care.
== END 2020-12-21 10:57 | disposition home or self-care (01) ==
LOC: SC 10:56
PROVIDERS: ATTEND Nurse Practitioner Family
DX: G47.33 Obstructive sleep apnea (adult) (pediatric) (principal)

== ENCOUNTER 2020-12-28 17:25 | Outpatient (CLI) | payer MEDICAID | END 2020-12-28 17:26 | disposition critical access hospital (66) | LOC: EMS 17:25 | DX: R07.9 Chest pain, unspecified (principal) | CPT/HCPCS: A0425; A0427; A0999 ==

== ENCOUNTER 2020-12-28 17:45 | Emergency (ER) | payer MEDICAID ==
--- OUTSIDE RECORDS SUMMARY | 2020-12-28 17:54 | EXTERNAL MEDICAL SUMMARY RPT | Continuity of Care Document ---
:1965 Demographics Phone Unavailable Preferred Language Unknown Marital Status Unknown Church Affiliation Unknown Race Unknown Ethnic Group Unknown Author Organization [facility] Address [address] [place] [address] Phone Allergies Encounters Medications Problems Results
[2020-12-28 18:19] LABS: BASOPHILS # (AUTO) 0.1 10^3/uL (0.0-0.1); BASOPHILS % (AUTO) 0.3 %; EOSINOPHILS # (AUTO) 0.1 10^3/uL (0.0-0.7); EOSINOPHILS % (AUTO) 0.5 %; HCT - HEMATOCRIT 43.8 % (37.0-47.0); HGB - HEMOGLOBIN 14.9 g/dL (12.0-16.0); LYMPHOCYTES % (AUTO) 13.8 %; MEAN CORPUSCULAR HEMOGLOBIN 29.4 pg (27.0-31.0); MEAN CORPUSCULAR VOLUME 86.4 fL (81.0-99.0); MEAN PLATELET VOLUME 9.2 fL (7.9-10.8); MONOCYTES # (AUTO) 0.6 10^3/uL (0.0-1.0); MONOCYTES % (AUTO) 4.1 %; NEUTROPHILS # (AUTO) 11.6 10^3/uL (1.5-6.6); NEUTROPHILS % (AUTO) 80.5 %; PLT - PLATELET COUNT 287 10^3/uL (130-450); RED BLOOD COUNT 5.07 10^6/uL (4.20-5.40); RED CELL DISTRIBUTION WIDTH 13.2 % (12.0-15.0); WHITE BLOOD COUNT 14.4 x10^3/uL (4.8-10.8)
--- NOTE | 2020-12-28 18:31 | XRAY Report ---
PROCEDURE: Chest 1 View X-Ray INDICATIONS: Chest pain TECHNIQUE: One view of the chest was acquired. COMPARISON: December 19, 2020 FINDINGS: Surgical changes and devices: None. Lungs and pleura: No pleural effusions or pneumothorax. Lungs are clear. The previously described density has resolved. Mediastinum: Mediastinal contours appear normal. Heart size is normal. Bones and chest wall: No suspicious bony lesions. Overlying soft tissues appear unremarkable. IMPRESSION: No acute cardiopulmonary findings. Left midlung density has resolved Reviewed by: Martinez Huff MD on 12/28/2020 5:30 PM [facility]DT Approved by: Martinez Huff MD on 12/28/2020 5:30 PM AKDT Station ID: [id number]
[2020-12-28 18:33] LABS: ALBUMIN 3.9 g/dL (3.2-5.5); ALBUMIN/GLOBULIN RATIO 1.2 (1.0-2.2); BILIRUBIN,TOTAL 0.7 mg/dL (0.2-1.0); CALCIUM 9.2 mg/dL (8.5-10.3); CREATININE 1.2 mg/dL (0.4-1.0); POTASSIUM 3.4 mmol/L (3.5-5.0); TOTAL PROTEIN 7.2 g/dL (6.7-8.2)
--- NOTE | 2020-12-28 19:09 | ED Physician Documentation ---
PD HPI CHEST PAIN - Stated complaint Stated Complaint: CP,SOA - Chief complaint Chief Complaint: Cardiac - History obtained from History obtained from: Patient - History of Present Illness Timing - onset: Today Timing - onset during: Rest Timing - duration: Minutes (5) Timing - details: Abrupt onset Pain level max: 3 Pain level now: 0 Quality: Pressure. No: Tightness, Aching, Sharp, Tearing, Dull, Stabbing, Throbbing, Indigestion, Like prior ACS, Pain Location: Substernal Radiation: No: Jaw, Neck, Back, Abdominal, Left upper extremity, Right upper extremity Improved by: No: Rest, Oxygen, Nitro, ASA, Antacids, Other medication, Nothing Worsened by: No: Exertion, Inspiration, Eating, Movement, Palpation, Position Associated symptoms: Shortness of air. No: Diaphoresis, Nausea, Vomiting, Feeling faint / dizzy, General Weakness, Palpitations, Cough Similar symptoms before: Has not had sx before Recently seen: Other (Seen here a few weeks ago for similar, negative work-up) - Additional information Additional information: Patient states that earlier today she had about 5 minutes of chest pain. She felt like "she was having a hard time breathing at that time. Nothing made it better or worse. Symptoms have not resolved. Review of Systems Ten Systems: 10 systems reviewed and negative Constitutional: denies: Fever, Chills Nose: denies: Rhinorrhea / runny nose, Congestion Respiratory: denies: Cough, Wheezing GI: denies: Vomiting, Diarrhea Skin: denies: Rash Musculoskeletal: denies: Neck pain, Back pain Neurologic: denies: Headache PD PAST MEDICAL HISTORY - Past Medical History Past Medical History: Yes Cardiovascular: Hypertension Neuro: CVA - Past Surgical History Past Surgical History: No - Present Medications Home Medications: Ambulatory Orders Medication Instructions Recorded Confirmed Heart Medicine 12/28/20 Lisinopril [Zestril] 0 mg DAILY 12/28/20 12/28/20 - Allergies Allergies/Adverse Reactions: Allergies Allergy/AdvReac Type Severity Reaction Status Date / Time No Known Drug Allergies Allergy Verified 01/07/14 09:34 - Social History Does the pt smoke?: No Smoking Status: Never smoker Does the pt drink ETOH?: Yes Does the pt have substance abuse?: No - Immunizations Immunizations are current?: Yes - POLST Patient has POLST: No PD ED PE NORMAL - Vitals Vital signs reviewed: Yes - General General: Alert and oriented X 3, No acute distress, Well developed/nourished - HEENT HEENT: PERRL, Moist mucous membranes - Neck Neck: Supple, no meningeal sign - Cardiac Cardiac: RRR, No murmur, Strong equal pulses - Respiratory Respiratory: No respiratory distress, Clear bilaterally - Abdomen Abdomen: Soft, Non tender, Non distended - Back Back: No spinal TTP - Derm Derm: Warm and dry - Extremities Extremities: No edema, No calf tenderness / cord - Neuro Neuro: Alert and oriented X 3 - Psych Psych: Normal mood, Normal affect Results - Vitals Vitals: Vital Signs - 24 hr 12/28/20 12/28/20 12/28/20 17:46 18:00 19:18 Temperature 36.4 C L 36.5 C Heart Rate 54 L 61 61 Respiratory 14 16 15 Rate Blood Pressure 120/67 131/65 H 122/65 O2 Saturation 99 99 99 12/28/20 19:19 Temperature 36.5 C Heart Rate 61 Respiratory 15 Rate Blood Pressure 122/65 O2 Saturation 99 Oxygen O2 Source Room air - EKG (time done) 1749 Rate: Rate (enter#) (55) Rhythm: NSR [place]: Normal Intervals: Normal CT QRS: Normal Ischemia: Normal ST segments - Labs Labs: Laboratory Tests 12/28/20 12/28/20 12/28/20 18:15 18:15 18:15 WBC 14.4 H RBC 5.07 Hgb 14.9 Hct 43.8 MCV 86.4 MCH 29.4 MCHC 34.0 RDW 13.2 Plt Count 287 MPV 9.2 Neut # (Auto) 11.6 H Lymph # (Auto) 2.0 [place] # (Auto) 0.6 Eos # (Auto) 0.1 Baso # (Auto) 0.1 Absolute Nucleated RBC 0.00 Nucleated RBC % 0.0 Sodium 138 Potassium 3.4 L Chloride 104 Carbon Dioxide 23 Anion Gap 11.0 BUN 17 Creatinine 1.2 H Estimated GFR (MDRD) 46 L Glucose 200 H Calcium 9.2 Total Bilirubin 0.7 AST 24 ALT 34 Alkaline Phosphatase 50 Troponin I High Sens 3.4 Total Protein 7.2 Albumin 3.9 Globulin 3.3 Albumin/Globulin Ratio 1.2 Lipase 49 - Rads (name of study) cxr Radiology: Prelim report reviewed, EMP read contemporaneously, See rad report (no acute abnormality) PD MEDICAL DECISION MAKING - ED course Complexity details: reviewed results, re-evaluated patient, considered differential (No ST elevation AL, no aortic dissection, no PE, no tension pneumothorax, no aortic aneurysm), d/w patient ED course: Patient with atypical chest pain. No acute findings on laboratory testing, EKG, chest x-ray. No evidence of PE. Asymptomatic here. Patient is very anxious to leave. She does not want to stay for repeat troponin. We will have her follow-up with her doctor closely for further care. Patient counseled regarding signs and symptoms for which I believe and urgent re-evaluation would be necessary. Patient with good understanding of and agreement to plan and is comfortable going home at this time This document was made in part using voice recognition software. While efforts are made to proofread this document, sound alike and grammatical errors may occur. Departure - Departure Disposition: 01 Home, Self Care Clinical Impression: Chest discomfort Condition: Good Instructions: ED Chest Pain Atypical Unkn Cause Follow-Up: ANGEL RUIZ, MSN, [facility] [Primary Care Provider] - Within 1 week Comments: The cause of your symptoms is unclear tonight. Please follow-up with your doctor for further care. Return if you worsen Discharge Date/Time: 12/28/20 19:19
[2020-12-28 19:19] VITALS: BP 122/65
== END 2020-12-28 19:19 | disposition home or self-care (01) ==
LOC: EDUNIT# → ED 17:45
DX: R07.89 Other chest pain (principal); I10 Essential (primary) hypertension
CPT/HCPCS: 36415; 80053; 83690; 84484; 85025; 93005; 99284

== ENCOUNTER 2022-05-30 19:37 | Emergency (ER) | payer MEDICAID ==
[2022-05-30] MEDS ORDERED: LIDOCAINE VISCOUS 2% 15 ML UDC MM STA (19:58)
[2022-05-30] MEDS ORDERED: MAG HYDROX/AL HYDROX/SIMETH 30 ML UDC PO STA (19:58)
--- NOTE | 2022-05-30 19:59 | ED Physician Documentation ---
PD HPI CHEST PAIN - Stated complaint Stated Complaint: CHEST PX - Chief complaint Chief Complaint: Cardiac - History obtained from History obtained from: Patient, Friend - History of Present Illness Timing - onset: Today Timing - onset during: Rest Timing - duration: Minutes Timing - details: Abrupt onset, Still present Pain level max: 10 Pain level now: 4 Quality: Pressure Location: Substernal Radiation: Jaw, Neck Improved by: Nitro Worsened by: Inspiration Associated symptoms: Shortness of air, Feeling faint / dizzy. No: Diaphoresis, Nausea, Vomiting, General Weakness, Palpitations, Cough Similar symptoms before: No diagnosis Recently seen: Not recently seen - Additional information Additional information: 57-year-old Ravi He was eating at a restaurant when she had a pumpkin spiced entre and about 15 minutes following that she developed acute substernal pain in her left chest radiating to her neck. She became some shortness of breath associated with this but was not diaphoretic. She felt lightheaded. She was tended to by personnel from the ambulance who administered nitroglycerin with sequential improvement. The patient indicates that she has not been recently ill. She denies abdominal pain associated with this. She denies nausea. She has not had swelling of her calves or feet and she has not been confined. She has a history of prior CVA and has had evaluation for chest pain previously without findings. She feels like she has some increase in this pain with deep breathing. Review of Systems Constitutional: denies: Fever, Chills, Myalgias Eyes: denies: Decreased vision Ears: denies: Loss of hearing, Ear pain, Tinnitus/ringing Nose: denies: Rhinorrhea / runny nose, Congestion Throat: denies: Sore throat Cardiac: reports: Chest pain / pressure. denies: Palpitations, Pedal edema, Calf pain Respiratory: denies: Dyspnea, Cough, Wheezing GI: denies: Abdominal Pain, Nausea, Vomiting, Constipation, Diarrhea : denies: Dysuria, Frequency Skin: denies: Rash Musculoskeletal: denies: Neck pain, Back pain, Extremity pain PD PAST MEDICAL HISTORY - Past Medical History Cardiovascular: Hypertension Neuro: CVA - Past Surgical History Past Surgical History: No - Present Medications Home Medications: Ambulatory Orders Medication Instructions Recorded Confirmed No Known Home Medications 05/30/22 05/30/22 - Allergies Allergies/Adverse Reactions: Allergies Allergy/AdvReac Type Severity Reaction Status Date / Time No Known Drug Allergies Allergy Verified 05/30/22 20:43 - Social History Does the pt smoke?: No Smoking Status: Never smoker Does the pt drink ETOH?: Yes Does the pt have substance abuse?: No - Immunizations Immunizations are current?: Yes - POLST Patient has POLST: No PD ED PE NORMAL - Vitals Vital signs reviewed: Yes (hypertensive ) - General General: Alert and oriented X 3, No acute distress, Well developed/nourished - HEENT HEENT: Atraumatic, PERRL, EOMI - Neck Neck: Supple, no meningeal sign, No bony TTP - Cardiac Cardiac: RRR, No murmur, Other (no chest wall tenderness ) - Respiratory Respiratory: No respiratory distress, Clear bilaterally - Abdomen Abdomen: Normal bowel sounds, Soft, Non tender, Non distended, No organomegaly, Other (specifically no RUQ tenderness ) - Back Back: No CVA TTP, No spinal TTP - Derm Derm: Normal color, Warm and dry, No rash - Extremities Extremities: No deformity, No edema - Neuro Neuro: Alert and oriented X 3, six sigma black trainer 2-12 intact, No motor deficit, No sensory def icit, Normal speech Eye Opening: Spontaneous Motor: Obeys Commands Verbal: Oriented GCS Score: 15 - Psych Psych: Normal mood, Normal affect Results - Vitals Vitals: Vital Signs - 24 hr 05/30/22 05/30/22 05/30/22 19:37 19:46 20:08 Temperature 36.9 C Heart Rate 76 66 68 Respiratory 19 16 15 Rate Blood Pressure 187/87 H 168/98 H 149/66 H O2 Saturation 100 100 100 05/30/22 05/30/22 05/30/22 21:24 21:48 22:51 Temperature 36.9 C 36.9 C 36.8 C Heart Rate 57 L 55 L 56 L Respiratory 16 14 16 Rate Blood Pressure 158/83 H 145/84 H 148/84 H O2 Saturation 100 100 100 Oxygen O2 Source Room air - EKG (time done) 194 Rate: Rate (enter#) (67) Rhythm: NSR Ischemia: Normal ST segments Compare to prior EKG: Unchanged from prior EKG Computer interpretation: Agree with computer - Labs Labs: Laboratory Tests 05/30/22 05/30/22 05/30/22 19:57 19:57 19:57 WBC 8.4 RBC 5.20 Hgb 14.7 Hct 44.9 MCV 86.3 MCH 28.3 MCHC 32.7 RDW 13.1 Plt Count 271 MPV 9.5 Neut # (Auto) 4.7 Lymph # (Auto) 2.9 [place] # (Auto) 0.6 Eos # (Auto) 0.2 Baso # (Auto) 0.1 Absolute Nucleated RBC 0.00 Nucleated RBC % 0.0 Sodium 138 Potassium 3.5 Chloride 102 Carbon Dioxide 23 Anion Gap 13.0 BUN 16 Creatinine 1.0 Estimated GFR (MDRD) 57 L Glucose 158 H Calcium 9.4 Total Bilirubin 0.6 AST 27 ALT 35 Alkaline Phosphatase 64 Troponin I High Sens 4.5 Total Protein 7.7 Albumin 4.3 Globulin 3.4 Albumin/Globulin Ratio 1.3 Lipase 27 05/30/22 21:47 WBC RBC Hgb Hct MCV MCH MCHC RDW Plt Count MPV Neut # (Auto) Lymph # (Auto) [place] # (Auto) Eos # (Auto) Baso # (Auto) Absolute Nucleated RBC Nucleated RBC % Sodium Potassium Chloride Carbon Dioxide Anion Gap BUN Creatinine Estimated GFR (MDRD) Glucose Calcium Total Bilirubin AST ALT Alkaline Phosphatase Troponin I High Sens 4.8 Total Protein Albumin Globulin Albumin/Globulin Ratio Lipase - Rads (name of study) CT chest angio Radiology: Prelim report reviewed (Impression: 1. No evidence of pulmonary embolism. No acute airspace consolidation suspected cholelithiasis without definite CT evidence of cholecystitis. If clinically indicated, further evaluation may be obtained with ultrasound.), EMP read indepedently, See rad report Procedures - IVC sono (time) 1949 Bedside IVC sono: IVC measures (cm) (1.49), Euvolemia PD MEDICAL DECISION MAKING - ED course Complexity details: reviewed old records, reviewed results, re-evaluated patient, considered differential, d/w patient, d/w family ED course: 57 y/o female with left sided substernal chest pain with radiation to the neck and jaw has a normal EKG and 2 normal trops. With the acute onset of the pain at rest I considered pulmonary embolism, aortic aneurysm rupture, aortic dissection and pneumonia in the differential and performed a pulmonary angiogram reassuringly ruling out these bad players. She has a history of gallstone and has typical symptoms of gallbladder disease with pain to the right abdomen. Tonight she did not have RUQ pain to palpation and she had no signs of cholecystitis on CT exam. I did provide a GI cocktail consisting of viscous lido and mylanta and this had no effect on the patient's pain. She has had similar pain previously with negative work up. I did not come up with a specific diagnosis and have asked the patient to follow up with her primary. She has none and we have provided her with follow up. Departure - Departure Disposition: 01 Home, Self Care Clinical Impression: Atypical chest pain Condition: Stable Instructions: ED Chest Pain Atypical Unkn Cause Follow-Up: Larisa Mckeon ARNP [Provider Admit Priv/Credential] - Comments: Ravi, today we did not find a specific reason for your chest pain. We did not find any evidence of a heart attack or problems with the structures inside your chest. We did not find any evidence of pulmonary embolism, pneumonia, heart failure, aneurysms or dissections. A sensitive measure of damage to your heart was negative. My recommendation is to follow-up with your primary care doctor to have an exercise stress test done. In addition I have given you a referral to surgery to consider removal of your gallbladder. Discharge Date/Time: 05/30/22 22:51
[2022-05-30] MEDS ORDERED: iohexoL-300 100 ML VIAL ONE (20:02)
[2022-05-30 20:03] LABS: BASOPHILS # (AUTO) 0.1 10^3/uL (0.0-0.1); BASOPHILS % (AUTO) 0.6 %; EOSINOPHILS # (AUTO) 0.2 10^3/uL (0.0-0.7); EOSINOPHILS % (AUTO) 2.5 %; HCT - HEMATOCRIT 44.9 % (37.0-47.0); HGB - HEMOGLOBIN 14.7 g/dL (12.0-16.0); LYMPHOCYTES # (AUTO) 2.9 10^3/uL (1.5-3.5); MEAN CORPUSCULAR HEMOGLOBIN 28.3 pg (27.0-31.0); MEAN CORPUSCULAR HGB CONC 32.7 g/dL (32.0-36.0); MEAN CORPUSCULAR VOLUME 86.3 fL (81.0-99.0); MEAN PLATELET VOLUME 9.5 fL (7.9-10.8); MONOCYTES # (AUTO) 0.6 10^3/uL (0.0-1.0); MONOCYTES % (AUTO) 6.9 %; NEUTROPHILS # (AUTO) 4.7 10^3/uL (1.5-6.6); NEUTROPHILS % (AUTO) 55.6 %; PLT - PLATELET COUNT 271 10^3/uL (130-450); RED CELL DISTRIBUTION WIDTH 13.1 % (12.0-15.0); WHITE BLOOD COUNT 8.4 x10^3/uL (4.8-10.8)
[2022-05-30 20:15] LABS: ALBUMIN 4.3 g/dL (3.2-5.5); ALBUMIN/GLOBULIN RATIO 1.3 (1.0-2.2); BILIRUBIN,TOTAL 0.6 mg/dL (0.2-1.0); CALCIUM 9.4 mg/dL (8.5-10.3); POTASSIUM 3.5 mmol/L (3.5-5.0); TOTAL PROTEIN 7.7 g/dL (6.7-8.2)
--- NOTE | 2022-05-30 21:46 | CT Report ---
PROCEDURE: ANGIO CHEST W/WO INDICATIONS: chest pain CONTRAST: Omni 300 80ml TECHNIQUE: After the administration of intravenous contrast, 2 mm axial images were acquired from the pulmonary apices to the posterior costophrenic angles during the arterial phase. In addition, 1 mm lung kernel and 5 mm soft tissue kernel reconstructions were performed. 3-dimensional coronal oblique maximum int ensity projection (MIP) reformats, 8 mm axial MIP, and 5 mm coronal and sagittal MPR reformats were t hen performed through the thorax. For radiation dose reduction, the following was used: automated exp osure control, adjustment of mA and/or kV according to patient size. COMPARISON: Chest x-ray 12/28/2020. Abdominal ultrasound 12/18/2020. FINDINGS: Image quality: Excellent. Pulmonary arteries: Pulmonary arteries are normal in size, and demonstrate no intraluminal filling d efects to suggest central pulmonary embolism. Lower Neck: No lymphadenopathy by size criteria. Thyroid: Visualized thyroid demonstrates no discrete nodules. Axillae: No lymphadenopathy by size criteria. Chest Wall: Unremarkable. Bones: Visualized osseous structures demonstrate no suspicious lesions. Lungs and Airways: No acute consolidation. No suspicious pulmonary nodules. The trachea and central airways are patent. Pleura: No pneumothorax or pleural effusions. Heart: Heart size is normal. No pericardial effusion. Thoracic Vessels: The thoracic aorta is normal in size. Mediastinum and Wind[place]: No lymphadenopathy by size criteria. Esophagus: No wall thickening. There is a small hiatal hernia. Abdomen: Visualized upper abdomen demonstrates suggestion of a possible peripherally calcified stone in the gallbladder neck. IMPRESSION: 1. No evidence of pulmonary embolism. 2. No acute airspace consolidation. 3. Suspected cholelithiasis without definite CT evidence of cholecystitis. If clinically indicated, f urther evaluation may obtained with ultrasound. Reviewed by: Edwin To MD on 05/30/2022 9:45 PM PST Approved by: Edwin To MD on 05/30/2022 9:45 PM PST Station ID: [id number]
[2022-05-30 22:53] VITALS: BP 148/84
[2022-05-30] MEDS ORDERED: iohexoL-300 100 ML VIAL IVP ONE (23:48)
== END 2022-05-30 22:51 | disposition home or self-care (01) ==
LOC: EDUNIT# → ED 19:37
DX: R07.89 Other chest pain (principal)
CPT/HCPCS: 36415; 71275; 80053; 83690; 84484; 85025; 93005; 99284; A9270; Q9967